=== PATIENT | female | born 1995 | race Caucasian/White ===

== ENCOUNTER 2024-03-10 12:48 | Outpatient (CLI) | payer BC, SELFPAY ==
--- NOTE | 2024-03-10 13:00 | CRLHL7_ITS ---
For Patients: As a result of the Century Cures Act, medical imaging exams and procedure reports are released immediately into your electronic medical record. You may view this report before your referring provider. If you have questions, please contact your health care provider. INDICATION: Check viability COMPARISON: Outside study not available TECHNIQUE: Real-time modi-scale imaging of the pelvis was performed. FINDINGS: Sonographic imaging demonstrates a single living intrauterine gestation. The embryo demonstrates a regular cardiac rate measuring 172 beats per minute. The embryo`s crown-rump length measurement of 2.9 cm corresponds to a gestational age of 9 weeks 5 days with a sonographic due date of 10/08/2024. There is a normal-appearing yolk sac. There are no gross abnormalities noted within the embryo at this early state of development. The gestational sac has a normal appearance. There is no evidence of a perigestational hemorrhage. The amount of fluid within the sac appears appropriate for gestational age. The cervix is closed. The myometrium appears normal. The ovaries are of normal size. There are no suspicious fluid collections noted in the cul-de-sac. IMPRESSION: Normal first trimester OB ultrasound exam. Gestational age calculated at 9 weeks 5 days with a sonographic due date of 10/08/2024. Dictated by Dionisio Myers MD @ 03/11/2024 9:30:06 AM (Electronically Signed)
== END 2024-03-10 12:49 | disposition home or self-care (01) ==
PROVIDERS: Visit Provider Advanced Practice Midwife
DX: Z34.91 Encounter for supervision of normal pregnancy, unspecified, first trimester (principal); Z3A.09 9 weeks gestation of pregnancy
CPT/HCPCS: 76801; 76817; 86703; 86706; 86803; 86850; 86900; 86901; 87086; 87340

== ENCOUNTER 2024-03-10 15:10 | Outpatient (CLI) | payer BC, SELFPAY | END 2024-03-10 15:11 | disposition home or self-care (01) | LOC: NFLDREF 03-11 09:44 | PROVIDERS: Visit Provider Midwife | DX: O09.811 Supervision of pregnancy resulting from assisted reproductive technology, first trimester (principal); Z3A.09 9 weeks gestation of pregnancy | CPT/HCPCS: 86592; 86703; 86704; 86706; 86762; 86787; 86803; 86850; 86900; 86901; 87086; 87340 ==

== ENCOUNTER 2024-04-21 08:45 | Outpatient (CLI) | payer BC, SELFPAY | END 2024-04-21 08:46 | disposition home or self-care (01) | LOC: NFLDREF 04-23 08:06 | PROVIDERS: Visit Provider Advanced Practice Midwife | DX: Z11.3 Encounter for screening for infections with a predominantly sexual mode of transmission (principal) | CPT/HCPCS: 87491; 87591 ==

== ENCOUNTER 2024-07-25 09:33 | Outpatient (CLI) | payer BC, SELFPAY | END 2024-07-25 09:34 | disposition home or self-care (01) | LOC: NFLDREF 07-27 04:06 | PROVIDERS: Visit Provider Midwife | DX: Z34.93 Encounter for supervision of normal pregnancy, unspecified, third trimester (principal); Z3A.29 29 weeks gestation of pregnancy | CPT/HCPCS: 86592 ==

== ENCOUNTER 2024-09-02 13:07 | Outpatient (CLI) | payer BC, SELFPAY ==
--- NOTE | 2024-09-02 13:00 | CRLHL7_ITS ---
For Patients: As a result of the Century Cures Act, medical imaging exams and procedure reports are released immediately into your electronic medical record. You may view this report before your referring provider. If you have questions, please contact your health care provider. INDICATION: Velamentous cord insertion TECHNIQUE: Ultrasound OB pelvis transabdominal. Real-time modi-scale imaging of the fetus was performed with color Doppler and spectral Doppler analysis of the umbilical artery without stress testing. COMPARISON: None FINDINGS: Sonographic imaging demonstrates a single living intrauterine gestation. Fetus demonstrates a regular cardiac rate of 133 beats per minute. Fetus has a cephalic orientation. The placenta lies anterior. Amniotic fluid volume appears normal with a MVP of 7.9 cm. breathing movements, motion, and tone were all observed. IMPRESSION: Single viable intrauterine with a biophysical profile 02/27. Dictated by Jacobo Heredia MD @ 09/02/2024 1:53:38 PM (Electronically Signed)
== END 2024-09-02 13:08 | disposition home or self-care (01) ==
LOC: US 13:08
PROVIDERS: Visit Provider Advanced Practice Midwife
DX: O43.123 Velamentous insertion of umbilical cord, third trimester (principal); O44.43 Low lying placenta NOS or without hemorrhage, third trimester; Z3A.34 34 weeks gestation of pregnancy
CPT/HCPCS: 76819